=== PATIENT | male | born 1995 | race Two or more races ===

== ENCOUNTER 2017-02-07 19:31 | Emergency (ER) | payer SELFPAY ==
[2017-02-07 19:47] VITALS: BP 125/71; PULSE 72; TEMP 98.1; BMI 25.8
[2017-02-07] MEDS ORDERED: TETRACAINE 0.5% OPHTH SOLN 2 ML BOTTLE ONE (20:36)
[2017-02-07] MEDS ORDERED: FLUORESCEIN NA 1 EA STRIP ONE (20:37)
--- NOTE | 2017-02-07 20:48 | PDOC ---
History of Present Illness - General History Source: Patient Exam Limitations: No Limitations - History of Present Illness Initial Comments: 02/07/17 20:55 The patient is a 21 year old male, with a significant past medical history of ulcerative colitis(no recent flares), who presents to the emergency department complaining of eye pain, itching, and burning for approximately 3 weeks. The patient reports he initially had a stye in his left lower eyelid. At the time he noted redness in his left eye. Patient reports the stye resolved on its own 3-4 days after initial onset. He states he then began to note erythema in his right eye, and persistent left eye erythema. He states he had a stye 5-6 months ago, but he never noted any redness or that his symptoms lasted this long. Patient reports visiting his PCP who prescribed Tobradex, with minimal relief of erythema, pain, burning, and itchiness. He reports his eyes have been continually watery. 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 He admits he does not wear any goggle at work, but states he does not recall getting any dust in his eye. He denies any changes in vision, purulent drainage, or crusting around eyelashes. He denies any fever, chills, headache, or dizziness. He denies any recent travel or sick contacts. Patient is scheduled for an appointment with an Bobbin Drier on 03/02/17. Allergies: None reported Past Surgical History: None reported Social History: Non smoker. No ETOH or drug use <Rory Lagos - Last Filed: 02/07/17 20:56> <Anny Max - Last Filed: 02/08/17 02:16> - General Chief Complaint: Eye Problem Stated Complaint: BILATERAL EYE IRRITATION Time Seen by Provider: 02/07/17 19:32 Past History <Rory Lagos - Last Filed: 02/07/17 20:56> - Past Medical History GI Disorders: Yes (REFLUX AND COLITIS) - Immunization History Immunization Up to Date: Yes - Psycho/Social/Smoking Cessation Hx Anxiety: No Suicidal Ideation: No Smoking History: Never smoked Have you smoked in the past 12 months: No Hx Alcohol Use: No Drug/Substance Use Hx: No Substance Use Type: None <Anny Max - Last Filed: 02/08/17 02:16> - Past Medical History Allergies/Adverse Reactions: Allergies Allergy/AdvReac Type Severity Reaction Status Date / Time No Known Allergies Allergy Verified 02/07/17 19:33 Home Medications: Ambulatory Orders Mercaptopurine [Purinethol -] 100 mg PO DAILY 02/07/17 Olopatadine HCl [Patanol] 2 drop OU BID #1 bottle 02/07/17 Review of Systems - Review of Systems Able to Perform ROS?: Yes Comments:: 02/07/17 20:55 CONSTITUTIONAL: Absent: fever, no chills, no fatigue EYES: Present: +bilateral eye erythema, itching, burning, watering, pain Absent: visual changes ENT: Absent: ear pain, no sore throat CARDIOVASCULAR: Absent: chest pain, no palpitations RESPIRATORY: Absent: cough, no SOB GI: Absent: abdominal pain, no nausea, no vomiting, no constipation, no diarrhea GENITOURINARY: Absent: dysuria, no frequency, no hematuria MUSCULOSKELETAL: Absent: back pain, no arthralgia, no myalgia SKIN: Absent: rash NEURO: Absent: headache <Rory Lagos - Last Filed: 02/07/17 20:56> *Physical Exam - Vital Signs Last Vital Signs Temp Pulse Resp BP Pulse Ox 98.1 F 72 16 125/71 100 02/07/17 19:32 02/07/17 19:32 02/07/17 19:32 02/07/17 19:32 02/07/17 19:32 - Physical Exam Comments: 02/07/17 20:56 GENERAL: The patient is awake, alert, and fully oriented, in no acute distress. HEAD:Normal with no signs of trauma. EYES: Moderate erythema, bilateral conjunctiva without purulent discharge or crusting of eyelash margins. No evidence of edema or masses along eyelash margins. Pupils and anterior chambers normal bilaterally. Pupils equal, round and reactive to light, extraocular movements intact, sclera anicteric. EXTREMITIES: Normal range of motion, no edema. NEUROLOGICAL: Normal speech, normal gait. PSYCH: Normal mood, normal affect. SKIN: Warm, Dry, normal turgor, no rashes or lesions noted. <Rory Lagos - Last Filed: 02/07/17 20:56> - Vital Signs Last Vital Signs Temp Pulse Resp BP Pulse Ox 98.1 F 72 16 125/71 100 02/07/17 19:32 02/07/17 19:32 02/07/17 19:32 02/07/17 19:32 02/07/17 19:32 <Anny Max - Last Filed: 02/08/17 02:16> Medical Decision Making - Medical Decision Making Documentation has been prepared under my direction and personally reviewed by me in its entirety. I attest that this documented accurately reflects all work, treatment, procedures and medical decision making performed by me. As noted above, this 21-year-old man presents with a history of bilateral eye redness, itching and mild discomfort for the last 3 weeks. Although the patient states this from having a left lower eyelid stye 3 1/2 weeks ago, this resolved spontaneously and he has not had recurrence. Patient described his ulcerative colitis is being under good control without recent flareups (on 6 MP) . The patient has arranged to be seen by an tutorial laboratory supervisor in approximately 3 weeks. Exam as noted above. Fluoroscopy seen exam performed bilaterally: One drop of 1% tetracaine ophthalmic solution applied in each eye. Fluoroscopy seen sustaining bilaterally showed no evidence of corneal abrasion/ulcers were other abnormality. Differential diagnosis includes ALLERGIC conjunctivitis versus viral conjunctivitis versus acute episcleritis secondary to patient's ulcerative colitis. Prescription for patanol ophthalmic solution sent to pharmacy but patient is advised to follow-up with tutorial laboratory supervisor in the next few days. <Anny Max - Last Filed: 02/08/17 02:16> *DC/Admit/Observation/Transfer - Attestations Scribe Attestion: 02/07/17 20:56 Documentation prepared by Rory Lagos, acting as medical records director for Anny Max MD. <Rory Lagos - Last Filed: 02/07/17 20:56> <Anny Max - Last Filed: 02/08/17 02:16> Diagnosis at time of Disposition: Allergic conjunctivitis Qualifiers: Laterality: bilateral Qualified Code(s): H10.13 - Acute atopic conjunctivitis, bilateral - Discharge Dispostion Disposition: HOME Condition at time of disposition: Stable - Prescriptions Prescriptions: Olopatadine HCl [Patanol] 2 drop OU BID #1 bottle - Patient Instructions Printed Discharge Instructions: Conjunctivitis Additional Instructions: Stop TobraDex Patanol 2 drops in each eye twice a day Call Dr. Delatorre/ office in a.m. to make an appointment within the next 2 days Return to ER if you have worsening pain/vision or develop discharge from my
== END 2017-02-07 21:04 | disposition home or self-care (01) ==
LOC: FER 19:31
DX: H10.13 Acute atopic conjunctivitis, bilateral (principal); K51.90 Ulcerative colitis, unspecified, without complications; K21.9 Gastro-esophageal reflux disease without esophagitis
CPT/HCPCS: 99281-25

== ENCOUNTER 2020-09-03 02:35 | Emergency (ER) | payer OTHER ==
[2020-09-03 02:39] VITALS: BP 105/68; PULSE 63; TEMP 97.8; BMI 24.5
[2020-09-03] MEDS ORDERED: SODIUM CHLORIDE 0.9% 1000 ML INFUS.BAG IV ONE (03:16)
[2020-09-03 03:22] LABS: EOS % 2.3 % (0-4.5); HEMATOCRIT 45.3 % (35.4-49); HEMOGLOBIN 15.1 GM/dL (11.7-16.9); LYMPH % 41.5 % (8-40); MCH 29.8 pg (25.7-33.7); MCHC 33.4 g/dl (32.0-35.9); MEAN CELL VOLUME 89.3 fl (80-96); MEAN PLT VOLUME 8.6 fl (7.5-11.1); MONO % 12.2 % (3.8-10.2); PLATELET COUNT 266 K/MM3 (134-434); RBC 5.07 M/mm3 (4.00-5.60); RDW 14.5 % (11.9-15.9); WHITE BLOOD COUNT 9.7 K/mm3 (4.0-10.0)
[2020-09-03 03:34] LABS: POTASSIUM 5.7 mmol/L (3.5-5.1)
[2020-09-03 03:37] LABS: ALBUMIN 4.1 g/dl (3.4-5.0); CALCIUM 9.3 mg/dL (8.5-10.1)
[2020-09-03 03:38] LABS: BLOOD UREA NITROGEN 24.4 mg/dL (7-18)
[2020-09-03 03:41] LABS: CREATININE 1.3 mg/dL (0.55-1.3)
[2020-09-03 03:42] LABS: BILIRUBIN,TOTAL 1.3 mg/dL (0.2-1)
== END 2020-09-03 05:57 | disposition home or self-care (01) ==
LOC: JER 02:35
DX: R55 Syncope and collapse (principal); R56.9 Unspecified convulsions
CPT/HCPCS: 36415; 70450-TC; 80053; 84132; 85025; 93005; 93010; 99285-25